=== PATIENT | male | born 1980 | race Caucasian/White ===

== ENCOUNTER → 2019-03-01 12:13 | Outpatient (CLI) | payer OTHER, SELFPAY ==
[2014-08-24 09:26] VITALS: BMI 20.9
--- NOTE | 2019-03-01 12:20 | RAD_ITS ---
STUDY: X-RAY - LEFT FOOT CLINICAL: Male, 38 years old. Injury to the top of the left foot. Stool fell on foot. TECHNIQUE: 3 view(s) of the foot. COMPARISON: None. FINDINGS: Normal talus, calcaneus, and tarsal bones. Normal visualized subtalar, talonavicular, calcaneocuboid, tarsal and tarsometatarsal articulations. Normal metatarsi. Normal metatarsophalangeal joint of the great toe. Normal tibial and fibular sesamoid bones. Normal interphalangeal joint of the great toe. Normal phalanges of the great toe. Normal second through fifth metatarsophalangeal joints. Normal interphalangeal joints and phalanges of the lesser toes. The soft tissue structures are unremarkable. RAD/Foot min 3 Views IMPRESSION: Normal x-ray examination of the foot. Electronically Signed: Ruben Douglas DO at 16:51 EDT Tel [phone], Service support ,
== END ==
PROVIDERS: Family Provider Family Medicine; PCP Family Medicine; Referring Provider Family Medicine; Visit Provider Family Medicine
DX: S99.929A Unspecified injury of unspecified foot, initial encounter (principal)
CPT/HCPCS: 73630

== ENCOUNTER → 2023-03-16 | Outpatient (CLI) | payer OTHER, SELFPAY ==
--- NOTE | 2023-03-15 | SEP_PTH ---
PATIENT: ALISA FLORES LOC: [facility] U#:[id number] AGE/SX: 42/M ROOM: RE03/16/[address]: Dr. Barrett Sifuentes MD : 1980 BED: DIS: 03/16/2023 SPEC #: [id number] RECD: 03/16/23 11:44 STATUS: SUSI PETEY #: [id number] LOVE: 03/15/23 00:[address]: Barrett Sifuentes DEPT: SURGICAL PATHOLOGY RECD BY: Silverio Caballero ENTERED: 03/16/23 11:44 SP TYPE: SEPTUM OTHR DR: Dr. Hemanth Evans MD [facility] Tissues: Nasal septum, NOS Procedures: Decalcification bone/plaque Surgery Specimen Level III HEADER OPERATION: Septoplasty, submucous resection of inferior turbinates PRE-OP DIAGNOSIS: Nasal congestion, hypertrophy of nasal turbinates, deviated nasal septum TISSUE SUBMITTED: Septum MICROSCOPIC DIAGNOSIS Nasal septum, septoplasty: Fragments of hyaline cartilage and bone with focal reparative change (clinically deviated septum). AM:tom 03/19/2023 MICROSCOPIC DESCRIPTION Slides are reviewed. GROSS DESCRIPTION Received in fixative is one container labeled with the patient's name and designated septum. The specimen consists of multiple irregular fragments of cartilage and bone that in aggregate measure 3.0 x 2.5 x 0.3 cm. The specimen is totally submitted in one cassette after decalcification. / CHACHA:tom 03/16/2023 TC:5 CPT: 49375, 34975
== END | disposition home or self-care (01) ==
LOC: LABSPEC 10:41
PROVIDERS: PCP Family Medicine; Referring Provider Otolaryngology; Visit Provider Otolaryngology
DX: J34.3 Hypertrophy of nasal turbinates (principal); J34.2 Deviated nasal septum; R09.81 Nasal congestion
CPT/HCPCS: 88304; 88311